=== PATIENT | male | born 1940 | race Two or more races ===

== ENCOUNTER 2023-10-19 15:49 | Inpatient (IN) | payer MEDICAID, OTHER ==
[~2023-10-19] VITALS: Ht 175.3 cm; Wt 81.0 kg
[2023-10-19] MEDS: SODIUM CHLORIDE 0.9% 1,000 ML IV ONE (17:15)
[2023-10-19] MEDS: ONDANSETRON HCL 4 MG/2 ML VIAL IV ONE (17:15)
[2023-10-19 17:24] LABS: Basophils # (auto) 0 10 ^3/uL (0-0.2); Basophils % (auto) 0.2 % (0.0-2.0); Eosinophils # (auto) 0.2 10 ^3/uL (0-0.8); Eosinophils % (auto) 1.2 % (0.0-7.0); Hematocrit 47.2 % (41.0-53.0); Hemoglobin 15.6 g/dL (13.5-17.5); Lymphocytes # (auto) 1.1 10 ^3/uL (0.4-5.4); Lymphocytes % (auto) 7.5 % (10.0-50.0); Mean Corpuscular Hemoglobin 28.6 pg (28.0-32.0); Mean Corpuscular Hgb Conc. 33.1 g/dL (32.0-36.0); Mean Corpuscular Volume 86.3 fL (80.0-100.0); Monocytes # (auto) 0.8 10 ^3/uL (0-1.3); Monocytes % (auto) 5.2 % (0.0-12.0); Neutrophils # (auto) 12.7 10 ^3/uL (1.6-8.6); Neutrophils % (auto) 85.9 % (37.0-80.0); Nucleated Red Blood Cells % 0.1 %; Red Blood Cells 5.47 10^6/uL (4.5-5.90); Red Cell Distribution Width 14.8 % (11.8-14.3); White Blood Cell 14.7 10^3/uL (4.4-10.8)
[2023-10-19 18:00] LABS: Alanine Aminotransferase 26 U/L (7-40); Albumin 4.3 g/dL (3.2-4.8); Alkaline Phosphatase 85 U/L (46-116); Anion Gap 7 (5-15); Aspartate Aminotransferase 24 U/L (13-40); Blood Urea Nitrogen 14 mg/dL (9-23); Calcium 9.3 mg/dL (8.7-10.4); Carbon Dioxide 28 mmol/L (20-30); Chloride 97 mmol/L (98-107); Glucose 284 mg/dL (74-106); Lipase 46 U/L (12-53); Potassium 4.3 mmol/L (3.5-5.1); Sodium 132 mmol/L (136-145)
[2023-10-19 18:01] LABS: Bilirubin, Total 0.5 mg/dL (0.2-1.0); Total Protein 7.9 g/dL (5.7-8.2)
[2023-10-19] MEDS ORDERED: MORPHINE SULFATE INJ 2 MG/ml SYRG IV PRN (20:00)
[2023-10-19] MEDS ORDERED: DOCUSATE SOD 100 MG CAP PO PRN (20:00)
[2023-10-19] MEDS ORDERED: NITROGLYCERIN 0.4 MG SL TAB SL PRN (20:00)
[2023-10-19] MEDS ORDERED: ONDANSETRON HCL 4 MG/2 ML VIAL IV PRN (20:00)
[2023-10-19] MEDS ORDERED: HYDROcodone-ACET 5/325MG TAB PO PRN (20:00)
[2023-10-19] MEDS ORDERED: DEXTROSE (50%) 50ML SYRG IV PRN (20:00)
[2023-10-19] MEDS ORDERED: ACETAMINOPHEN 325 MG TAB PO PRN (20:00)
[2023-10-19] MEDS ORDERED: BENA-36 PO (20:06)
[2023-10-19] MEDS ORDERED: PROP1TAB51 PO (20:06)
[2023-10-19] MEDS: cefTRIAXone 1GM/50ML D5W 50 ML IV ONE (20:15)
[2023-10-19] MEDS: metroNIDAZOLE 500MG/100ML 100 ML IV ONE (20:15)
[2023-10-19] MEDS ORDERED: hydrALAZINE HCL 20 MG/ML VL IV PRN (20:15)
[2023-10-19] MEDS: PANTOPRAZOLE 40 MG/10 ML VIAL INJ IV ONE (20:30)
[2023-10-19] MEDS ORDERED: ACCU-CHEK COMFORT CURVE STRIP VI SCH (22:00)
[2023-10-20] VITALS (8 sets, daily range): BP systolic 104–138; BP diastolic 56–76; PULSE 56–68; RESP 16–18; TEMP 98.1–98.6; O2SAT 94–100
[2023-10-20] MEDS: InsuLIN REG 1unit/0.01ml Soln (100units/ml) SC SCH (01:05)
[2023-10-20] MEDS: ACCU-CHEK COMFORT CURVE STRIP VI SCH (01:05)
[2023-10-20] MEDS: SODIUM CHLORIDE 0.9% 1,000 ML IV SCH (03:15)
[2023-10-20] MEDS: metroNIDAZOLE 500MG/100ML 100 ML IV SCH (05:26)
[2023-10-20 06:49] LABS: Basophils # (auto) 0 10 ^3/uL (0-0.2); Basophils % (auto) 0.2 % (0.0-2.0); Eosinophils # (auto) 0 10 ^3/uL (0-0.8); Eosinophils % (auto) 0.1 % (0.0-7.0); Hematocrit 45.3 % (41.0-53.0); Hemoglobin 15.2 g/dL (13.5-17.5); Lymphocytes # (auto) 1.4 10 ^3/uL (0.4-5.4); Lymphocytes % (auto) 12.4 % (10.0-50.0); Mean Corpuscular Hemoglobin 28.8 pg (28.0-32.0); Mean Corpuscular Hgb Conc. 33.6 g/dL (32.0-36.0); Mean Corpuscular Volume 85.9 fL (80.0-100.0); Monocytes # (auto) 0.7 10 ^3/uL (0-1.3); Monocytes % (auto) 6.1 % (0.0-12.0); Neutrophils # (auto) 8.9 10 ^3/uL (1.6-8.6); Neutrophils % (auto) 81.2 % (37.0-80.0); Nucleated Red Blood Cells % 0.1 %; Red Blood Cells 5.28 10^6/uL (4.5-5.90)
[2023-10-20 06:56] LABS: Alanine Aminotransferase 24 U/L (7-40); Alkaline Phosphatase 77 U/L (46-116); Anion Gap 10 (5-15); BUN/Creatinine Ratio 13.5 (10.0-20.0); Blood Urea Nitrogen 23 mg/dL (9-23); Carbon Dioxide 27 mmol/L (20-30); Chloride 97 mmol/L (98-107); Glucose 283 mg/dL (74-106); Potassium 4.1 mmol/L (3.5-5.1); Sodium 134 mmol/L (136-145)
[2023-10-20 06:57] LABS: Albumin 3.8 g/dL (3.2-4.8); Aspartate Aminotransferase 20 U/L (13-40)
[2023-10-20 06:58] LABS: Bilirubin, Total 0.4 mg/dL (0.2-1.0)
[2023-10-20] MEDS ORDERED: SITA100T7 PO (07:36)
[2023-10-20] MEDS ORDERED: PRIM125T PO (07:36)
[2023-10-20] MEDS ORDERED: CHOL20007 PO (07:36)
[2023-10-20] MEDS: BENAZEPRIL HCL 10 MG TAB PO SCH (09:28)
[2023-10-20] MEDS: PROPRANOLOL HCL 20 MG TAB PO SCH (09:29)
[2023-10-20] MEDS: PANTOPRAZOLE 40 MG/10 ML VIAL INJ IV SCH (09:30)
[2023-10-20] MEDS: cefTRIAXone 1GM/50ML D5W 50 ML IV SCH (09:30)
[2023-10-20 16:46] LABS: Triglycerides 182 mg/dL (< 150)
[2023-10-20 16:47] LABS: LDL Cholesterol 121 mg/dL (< 100)
[2023-10-20 16:48] LABS: Cholesterol 169 mg/dL (< 200); HDL Cholesterol 31 mg/dL (40-59)
[2023-10-21 05:00] VITALS: BP 142/68; PULSE 56; RESP 16; TEMP 97.9; O2SAT 97
[2023-10-21 06:21] LABS: Basophils # (auto) 0 10 ^3/uL (0-0.2); Basophils % (auto) 0.6 % (0.0-2.0); Eosinophils # (auto) 0.2 10 ^3/uL (0-0.8); Eosinophils % (auto) 2.4 % (0.0-7.0); Hematocrit 45.8 % (41.0-53.0); Hemoglobin 15.4 g/dL (13.5-17.5); Lymphocytes # (auto) 1.5 10 ^3/uL (0.4-5.4); Lymphocytes % (auto) 18.1 % (10.0-50.0); Mean Corpuscular Hemoglobin 29.1 pg (28.0-32.0); Mean Corpuscular Hgb Conc. 33.6 g/dL (32.0-36.0); Mean Corpuscular Volume 86.5 fL (80.0-100.0); Monocytes # (auto) 0.8 10 ^3/uL (0-1.3); Monocytes % (auto) 9.3 % (0.0-12.0); Neutrophils # (auto) 5.7 10 ^3/uL (1.6-8.6); Neutrophils % (auto) 69.6 % (37.0-80.0); Nucleated Red Blood Cells % 0.1 %; Red Blood Cells 5.29 10^6/uL (4.5-5.90); Red Cell Distribution Width 14.9 % (11.8-14.3); White Blood Cell 8.2 10^3/uL (4.4-10.8)
[2023-10-21 06:37] LABS: Alanine Aminotransferase 23 U/L (7-40); Albumin 3.7 g/dL (3.2-4.8); Alkaline Phosphatase 72 U/L (46-116); Anion Gap 7 (5-15); Aspartate Aminotransferase 23 U/L (13-40); BUN/Creatinine Ratio 13.3 (10.0-20.0); Bilirubin, Total 0.6 mg/dL (0.2-1.0); Blood Urea Nitrogen 18 mg/dL (9-23); Calcium 8.8 mg/dL (8.7-10.4); Carbon Dioxide 26 mmol/L (20-30); Chloride 103 mmol/L (98-107); Magnesium 1.8 mg/dL (1.6-2.6); Potassium 4.4 mmol/L (3.5-5.1); Sodium 136 mmol/L (136-145); Total Protein 6.9 g/dL (5.7-8.2)
[2023-10-21 06:45] LABS: Glucose 156 mg/dL (74-106)
[2023-10-21 08:00] VITALS: PULSE 58
[2023-10-21 09:32] VITALS: BP 144/67; PULSE 60; RESP 16; TEMP 97.7; O2SAT 99
[2023-10-21] MEDS: ASPirin 81 mg TAB PO SCH (10:00)
[2023-10-21 12:46] VITALS: BP 153/79; PULSE 65; RESP 16; TEMP 98.1; O2SAT 94
[2023-10-21] MEDS ORDERED: PANT40T PO (16:26)
[2023-10-21 16:41] VITALS: BP 153/79; PULSE 65; RESP 16; TEMP 98.1; O2SAT 94
[2023-10-21 17:03] VITALS: BP 153/73; PULSE 61; RESP 20; TEMP 98; O2SAT 94
== END 2023-10-21 19:15 | disposition home or self-care (01) ==
LOC: ER 15:49 → TELE 19:58 → TELE-WESTW 23:18
PROVIDERS: ADMIT Internal Medicine Pulmonary Disease; ATTEND Internal Medicine Pulmonary Disease
DX: K80.20 Calculus of gallbladder without cholecystitis without obstruction (principal); N17.0 Acute kidney failure with tubular necrosis; D72.829 Elevated white blood cell count, unspecified; E11.9 Type 2 diabetes mellitus without complications; I10 Essential (primary) hypertension; K52.9 Noninfective gastroenteritis and colitis, unspecified; Z87.891 Personal history of nicotine dependence
CPT/HCPCS: 36415; 70450; 70551; 71045; 74176; 76705; 78226; 80053; 80061; 82962; 83036; 83690; 83735; 84484; 85025; 87040; 87077; 87186; 93005; 93306; C9113; G0378; J1815; J3490